=== PATIENT | female | born 1940 | race Caucasian/White ===

== ENCOUNTER 2024-06-24 06:29 | Day surgery (SDC) | payer BC, SELFPAY ==
[2024-06-18 11:03] LABS: Hematocrit 43.7 % (37.0-47.0); Hemoglobin 14.4 g/dL (12.0-16.0); Mean Corpuscular Hgb 30.8 pg (27.0-31.0); Mean Corpuscular Volume 93.4 fL (81.0-99.0); Mean Platelet Volume 9.5 fL (7.4-10.4); Platelet Count 232 10^3/uL (130-400); Red Blood Cell Count 4.68 10^6/uL (4.20-5.40); Red Cell Dist. Width 13.8 % (11.5-14.5); White Blood Cell Count 7.1 10^3/uL (4.8-10.8)
[2024-06-18 11:09] LABS: INR 0.98; PT 13.3 Sec (11.4-14.6)
[2024-06-18 11:10] LABS: ALT (SGPT) 19 U/L (0-35); APTT 27.4 Sec (23.4-35.0); AST (SGOT) 20 U/L (14-36); Albumin 4.1 g/dl (3.5-5.0); Alkaline Phosphatase 64 U/L (38-126); Blood Urea Nitrogen 16 mg/dl (7-17); Calcium 9.8 mg/dl (8.4-10.2); Carbon Dioxide 30 mmol/L (22-30); Chloride 104 mmol/L (98-107); Glucose 94 mg/dl (70-99); Potassium 4.2 mmol/L (3.5-5.1); Sodium 142 mmol/L (135-145); Total Bilirubin 0.9 mg/dl (0.2-1.3); eGFR > 60.00
[2024-06-18 12:45] LABS: Glycohemoglobin (HgbA1c) 5.5 % (4.0-5.6)
[2024-06-18 14:09] VITALS: BMI 23.7
--- NOTE | 2024-06-18 15:26 | PTCARENOTE ---
Abnormal ECG 06/18/[address] Santillan no further intervention requested.
[2024-06-24] VITALS (12 sets, daily range): BP systolic 103–132; BP diastolic 50–70; BMI 23.7
[2024-06-24] MEDS: ENTEREG 12 MG PO (08:03)
[2024-06-24] MEDS: NEURONTIN 600 MG PO (08:03)
[2024-06-24] MEDS: TYLENOL 1000 MG PO (08:03)
[2024-06-24] MEDS: NORMOSOL-R/PLASMALYTE-A 1000 IV ×3 (08:10→22:26)
[2024-06-24] MEDS: HEPARIN 5000 UNITS SC (08:23)
--- NOTE | 2024-06-24 10:42 | W.IMMPOSTOP ---
Surgical Immed Post Op Note
-
Primary Surgeon: Dayanara Scott MD
Assisting Surgeon: RENETTA Gaspar
Pre-op Diagnosis: history of appendicitis with phlegmon
Post-op Diagnosis: same
Procedure Performed: robotic appendectomy
Anesthesia Type: general plus local
Specimen / Cultures: appendix
Estimated Blood Loss: 10 cc
Complications: no immediate
Operative Findings: 1) chronically inflamed somewhat enlarged nonperforated appendix with associated inflammatory adhesions 2) left sided abdominal adhesions
Meng removed at end of case.
Bringing in for post surgical recovery with plans for discharge in am tomorrow.
[2024-06-24 11:35] LABS: % Basophils 0.2 % (0-2); % Eosinophils 0.9 % (0-6); % Immature Granulocytes 0.5 % (0-0.5); % Lymphocytes 10.5 % (20.5-51.1); % Monocytes 5.1 % (1.7-9.3); % Neutrophils 82.8 % (42.2-75.2); Absolute Eosinophils 0.1 10^3/uL (0-0.7); Absolute Immature Granulocytes 0.1 10^3/uL (0-0.05); Absolute Monocytes 0.5 10^3/uL (0.1-0.6); Absolute Neutrophils 8.1 10^3/uL (1.4-6.5); Hematocrit 43.1 % (37.0-47.0); Hemoglobin 14.7 g/dL (12.0-16.0); Mean Corp Hgb Conc. 34.1 g/dL (33.0-37.0); Mean Corpuscular Hgb 30.9 pg (27.0-31.0); Mean Corpuscular Volume 90.7 fL (81.0-99.0); Mean Platelet Volume 8.9 fL (7.4-10.4); Nucleated Red Blood Cells % 0 %; Platelet Count 194 10^3/uL (130-400); Red Blood Cell Count 4.75 10^6/uL (4.20-5.40); Red Cell Dist. Width 13.6 % (11.5-14.5); White Blood Cell Count 9.8 10^3/uL (4.8-10.8)
[2024-06-24] MEDS: TORADOL 10 MG IV ×3 (11:48→22:26)
[2024-06-24 11:49] LABS: Blood Urea Nitrogen 9 mg/dl (7-17); Calcium 8.9 mg/dl (8.4-10.2); Carbon Dioxide 23 mmol/L (22-30); Chloride 107 mmol/L (98-107); Estimated Creatinine Clearance 45 ml/min; Glucose 141 mg/dl (70-99); Magnesium 2.1 mg/dl (1.6-2.3); Potassium 3.8 mmol/L (3.5-5.1); Sodium 141 mmol/L (135-145); eGFR > 60.00
--- NOTE | 2024-06-24 12:16 | PTCARENOTE ---
Patient admitted from PACU post robotic appendectomy.The patient is drowsy but arousable.All 4 lap sites are intact without drainage.Vital signs are stable.The patient is in her bed with the call medina in reach.Her family is at the bedside.
[2024-06-24] MEDS: TYLENOL 650 MG PO ×3 (13:25→22:26)
--- NOTE | 2024-06-24 15:01 | CM ---
Reviewed the chart notes and spoke with the patient at the bedside. The patient resides with her spouse in a one story home with one step to enter. The patient reports no DME/SNF in the past, but has had [facility]. The patient confirmed her
pharmacy of choice is the [address] CM continues to be available to patient/family and is monitoring medical plan for needs at discharge.
Plan: Discharge to home when medically stable. No needs anticipated.
[2024-06-24] MEDS: TYLENOL PO (19:36)
[2024-06-25] MEDS: MELATONIN 5 MG PO (02:09)
[2024-06-25] MEDS: TYLENOL 650 MG PO ×3 (02:09→11:08)
[2024-06-25 03:00] VITALS: BP 130/70
[2024-06-25] MEDS: TORADOL 10 MG IV ×2 (05:29→11:06)
[2024-06-25 07:22] VITALS: BP 130/71
[2024-06-25 08:38] LABS: % Basophils 0.1 % (0-2); % Immature Granulocytes 0.8 % (0-0.5); % Lymphocytes 3.9 % (20.5-51.1); % Monocytes 4.9 % (1.7-9.3); % Neutrophils 90.3 % (42.2-75.2); Absolute Immature Granulocytes 0.1 10^3/uL (0-0.05); Absolute Lymphocytes 0.4 10^3/uL (1.2-3.4); Absolute Monocytes 0.5 10^3/uL (0.1-0.6); Absolute Neutrophils 9.1 10^3/uL (1.4-6.5); Hematocrit 40.4 % (37.0-47.0); Hemoglobin 13.6 g/dL (12.0-16.0); Mean Corp Hgb Conc. 33.7 g/dL (33.0-37.0); Mean Corpuscular Hgb 30.7 pg (27.0-31.0); Mean Corpuscular Volume 91.2 fL (81.0-99.0); Mean Platelet Volume 9.6 fL (7.4-10.4); Nucleated Red Blood Cells % 0 %; Platelet Count 201 10^3/uL (130-400); Red Blood Cell Count 4.43 10^6/uL (4.20-5.40); Red Cell Dist. Width 13.8 % (11.5-14.5)
[2024-06-25] MEDS: ASPIR LOW (ENTERIC COATED) 81 MG PO (09:20)
[2024-06-25] MEDS: ALTACE 2.5 MG PO (09:20)
[2024-06-25] MEDS: HIPREX 1 GRAM PO (09:20)
[2024-06-25] MEDS: NORVASC 5 MG PO (09:20)
[2024-06-25] MEDS: LIPITOR 10 MG PO (09:20)
[2024-06-25] MEDS: PROTONIX 40 MG PO (09:20)
--- NOTE | 2024-06-25 10:57 | W.PN.CRS1 ---
Today's Communication / Plan
-
regular diet
discharge later today
Assessment/Plan
-
POD#1 robotic appendectomy
Vitals normal
WBC 10.0, Hgb 13.6
-Regular diet
-D/C IVFs
-OR pathology pending
-OOB as tolerating
-Voiding post corona removal
-Okay for discharge today. All discharge instructions discussed with the patient including medications, activity levels, and follow up. All questions answered.
Subjective Data
Procedure
06/24/2024- robotic appendectomy
Subjective Data
Date of Service: June 25, 2024
Patient states she feels well. She has no complaints. Her pain is controlled. She has no nausea or vomiting. She is hungry and wants to eat. She has bowel function.
Objective Data
-
Vital Signs
Temp Pulse Resp BP Pulse Ox
97.6 F 81 18 130/71 97
06/25/24 07:22 06/25/24 07:22 06/25/24 07:22 06/25/24 07:22 06/25/24 07:22
Intake & Output
06/24/24 06/25/24 06/26/24
06:59 06:59 06:59
Intake Total 3140 / 3140
Balance 3140 / 3140
Intake:
Oral fluids 1700 / 1700
IV fluids (Total) 1440 / 1440
Other:
Number of approximated MODERATE 2 1
amounts of urine
Number of approximated LARGE 1
amounts of urine
Lab Results
06/25/24 07:27
Physical Exam
-
General: No Acute Distress and AOx3
Abdomen: Soft, Non Distended and Non Tender
Skin: Warm and Dry
Incision: Clear, Dry, Intact
[2024-06-25 11:15] LABS: Blood Urea Nitrogen 10 mg/dl (7-17); Calcium 8.8 mg/dl (8.4-10.2); Carbon Dioxide 24 mmol/L (22-30); Chloride 105 mmol/L (98-107); Estimated Creatinine Clearance 51 ml/min; Glucose 135 mg/dl (70-99); Magnesium 2.3 mg/dl (1.6-2.3); Potassium 4.6 mmol/L (3.5-5.1); Sodium 140 mmol/L (135-145); eGFR > 60.00
[2024-06-25 11:17] VITALS: BP 113/65
[2024-06-25] MEDS: PREVNAR 20 0.5 ML IM (12:35)
== END 2024-06-25 12:42 | disposition home or self-care (01) ==
LOC: SDS 06:29
PROVIDERS: ATTENDING PHYSICIAN Surgery; FAMILY PHYSICIAN Family Medicine
DX: K36 Other appendicitis (principal); K66.0 Peritoneal adhesions (postprocedural) (postinfection)
CPT/HCPCS: 44970; 88304; 36415; 80048; 80053; 83036; 83735; 85025; 85027; 85610; 85730; 86850; 86900; 86901; 88341; 88342; 90677; 93005; G0009; J1335